=== PATIENT | female | born 1990 | race Caucasian/White ===

== ENCOUNTER 2018-05-15 10:45 | Outpatient (REF) | payer SELFPAY ==
[2018-05-15 12:51] LABS: HCT 43.5 % (36.0-46.0); Mean Corp. HGB Concentration 32.2 g/dL (32.0-36.0); Mean Corpuscular Hemoglobin 27.1 pg (27.0-33.0); Mean Corpuscular Volume 84.1 fL (80-95); Mean Platelet Volume 10.2 fL (8.0-11.0); Platelet Count 333 x1000/uL (130-400); RBC 5.17 m/cumm (4.00-5.20); RBC Distribution Width 13.2 % (11.7-14.6); White Blood Cell Count 11.44 k/cumm (4.4-10.8)
[2018-05-15 13:15] LABS: Hemoglobin A1C 5.9 % (4.5-6.2)
[2018-05-15 13:23] LABS: Glucose 96 mg/dL (70-100); TSH (W/Ref FT4) 1.77 uIU/mL (0.358-3.74)
[2018-05-18 10:46] LABS: DHEA Sulfate 228 ug/dl (96-512)
[2018-05-18 11:17] LABS: HIV-1/2 Ag & Ab Screen Negative (NEGAT)
[2018-05-18 11:21] LABS: LH 3.8 mIU/ml
[2018-05-18 11:24] LABS: FSH 3.9 mIU/ml; Prolactin 7.9 ng/ml
[2018-05-18 12:47] LABS: Syphilis Serology (RPR) Negative (Negative)
[2018-05-19 01:31] LABS: Testosterone, Total 14 ng/dL (8-60)
== END 2018-05-15 11:05 ==
LOC: NCHCN 10:45
PROVIDERS: Visit Provider Family Medicine
DX: N97.9 Female infertility, unspecified (principal); Z00.00 Encounter for general adult medical examination without abnormal findings; Z11.4 Encounter for screening for human immunodeficiency virus [HIV]; Z13.1 Encounter for screening for diabetes mellitus; Z13.29 Encounter for screening for other suspected endocrine disorder
CPT/HCPCS: 82627; 82947; 84403; 85027; 87389; 83001; 83002; 83036; 84146; 84443; 86592

== ENCOUNTER 2018-10-28 09:34 | Outpatient (REF) | payer SELFPAY ==
--- NOTE | 2018-10-28 09:00 | PAPFT_PTH ---
PATIENT: Bernadine Ridley LOC: [facility] U#:[id number] AGE/SX: 27/F ROOM: RE10/28/[address]: Lisa Castellano : 1990 BED: DIS: 10/28/2018 SPEC #: [id number] RECD: 10/28/18 12:50 STATUS: YARIEL REAbhilash #: [id number] HOLLY: 10/28/18 09:[address]: Lisa Castellano DEPT: [facility] Cytology RECD BY: Katarzyna Dukes Tissues: 1 - CX/ENDOCX FOR PAP SMEARS Procedures: PAP THIN PREP/[facility]VM Screening Comments: [id number] (CHLAMYDIA/GC)
[2018-10-29 14:42] LABS: Chlamydia Result Negative; GC Result Negative; Specimen Description SEE COMMENTS
== END 2018-10-28 09:54 ==
LOC: NCHCN 09:34
PROVIDERS: PCP Family Medicine; Visit Provider Family Medicine
DX: Z12.4 Encounter for screening for malignant neoplasm of cervix (principal); Z11.51 Encounter for screening for human papillomavirus (HPV); Z00.00 Encounter for general adult medical examination without abnormal findings; Z11.3 Encounter for screening for infections with a predominantly sexual mode of transmission
CPT/HCPCS: 87491; 87591; 88142

== ENCOUNTER 2019-09-17 12:52 | Outpatient (REF) | payer BC, SELFPAY ==
[2019-09-17 16:47] LABS: HCT 43.4 % (36.0-46.0); HGB 14.7 g/dL (12.0-15.5); Mean Corp. HGB Concentration 33.9 g/dL (32.0-36.0); Mean Corpuscular Volume 85.6 fL (80-95); Mean Platelet Volume 10.7 fL (8.0-11.0); Platelet Count 303 x1000/uL (130-400); RBC 5.07 m/cumm (4.00-5.20); RBC Distribution Width 12.8 % (11.7-14.6); White Blood Cell Count 10.49 k/cumm (4.4-10.8)
[2019-09-17 17:00] LABS: Hemoglobin A1C 5.7 % (3.8-5.6)
[2019-09-17 17:05] LABS: ALT 17 U/L (14-59); AST 13 U/L (15-37); Albumin 3.9 g/dL (3.4-5.0); Alkaline Phosphatase 67 U/L (46-116); Amylase 46 U/L (25-115); BUN 15 mg/dL (7-18); Bilirubin, Total 0.3 mg/dL (0.2-1.0); CREATININE 0.97 mg/dL (0.55-1.02); Calcium 8.9 mg/dL (8.5-10.1); Chloride 103 mmol/L (98-107); Glucose 93 mg/dL (74-106); Lipase 91 U/L (73-393); Potassium 4.8 mmol/L (3.5-5.1); Sodium 139 mmol/L (136-145); TSH (W/Ref FT4) 1.55 uIU/mL (0.36-3.74); Total Protein 7.3 g/dL (6.4-8.2)
== END 2019-09-17 13:12 ==
LOC: NCHCN 12:52
PROVIDERS: PCP Family Medicine; Visit Provider Family Medicine
DX: R73.03 Prediabetes (principal); R10.13 Epigastric pain
CPT/HCPCS: 80053; 83690; 85027; 82150; 83036; 84443

== ENCOUNTER 2019-09-20 08:27 | Outpatient (CLI) | payer BC, SELFPAY ==
--- NOTE | 2019-09-20 | DI.US_ITS ---
EXAM: US ABDOMEN INDICATION: EPIGASTRIC ABD PAIN, R10.13 COMPARISON: No exams were available for comparison TECHNIQUE: Ultrasound abdomen performed using standard protocol FINDINGS: LIVER: Normal GALLBLADDER: No evidence of cholelithiasis. No pericholecystic fluid identified. No evidence of wall thickening. KIDNEYS: Kidneys are symmetric in size. No evidence of renal calculi. No evidence of hydronephrosis. No renal mass or cyst identified. BILIARY SYSTEM: Common bile duct measures 3 mm. No intrahepatic biliary ductal dilation. MONTOYA'S SIGN: Negative. PANCREAS: Normal where visualized. SPLEEN: Not enlarged. ABDOMINAL AORTA AND IVC: Visualized portions normal caliber. ASCITES: None seen. IMPRESSION: Normal sonographic appearance of the upper abdomen.
== END 2019-09-20 08:47 ==
PROVIDERS: PCP Family Medicine; Visit Provider Family Medicine
DX: R10.13 Epigastric pain (principal)
CPT/HCPCS: 76700

== ENCOUNTER 2019-11-05 12:48 | Emergency (ER) | payer BC, SELFPAY ==
[2019-11-05 12:54] VITALS: BP 160/76; PULSE 97; RESP 18; TEMP 36.1; O2SAT 99
--- NOTE | 2019-11-05 13:15 | DI.US_ITS ---
EXAM: US ABDOMEN LIMITED CLINICAL HISTORY: Eval gallbladder, RUQ abd pain TECHNIQUE: Ultrasound abdomen performed using standard protocol. COMPARISON: No exams were available for comparison FINDINGS: LIVER: Normal size and echogenicity. No focal liver lesions are seen.. GALLBLADDER: Mildly contracted. No evidence of cholelithiasis. No evidence of wall thickening. No pe richolecystic fluid identified. MONTOYA'S SIGN: Negative. BILIARY SYSTEM: No intrahepatic or extrahepatic biliary ductal dilation. Right kidney: Normal in size. No evidence of renal calculi. No evidence of hydronephrosis. No renal mass or cyst identified. PANCREAS: Normal where visualized. ASCITES: None seen. IMPRESSION: Normal sonographic appearance of the upper abdomen. DATA REPOSITORY:
--- NOTE | 2019-11-05 13:24 | W.ED.GENAD ---
Discharge Plan Disposition Patient Disposition: HOME Condition: Stable Discharge Details Chief Complaint: Abd Prob Clinical Impression: , Gallbladder colic Primary Care Provider: Lisa Castellano ED Provider: Jo Ann Sanon Home Meds and New Rx's Prescriptions: New ondansetron 4 mg tablet,disintegrating 4 mg PO TID PRN (Reason: nausea and vomiting) 5 Days Qty: 15 RF: 0 No Action polyethylene glycol 3350 [Miralax] 17 gram Powder In Packet RF: 0 Discharge Instructions Instructions: (ED), Abdominal Pain (ED) Additional Instructions: Follow-up with women's wellness within the next 4 weeks. Return to the ED for any vaginal bleeding worsening abdominal pain, fever, vomiting not relieved by medications or any concerns. Take medications as prescribed. You may take Tylenol as needed for pain is generally safe for . Follow up with primary care provider in 3-5 days. Return to ED sooner if any worsening or concerns. Increase oral fluids. Referrals: Mulu Garcia DO [OSTEOPATHIC DOCTOR] - Lisa Castellano MD [Primary Care Provider] - Discharge Data Discharge Date/Time-TO BE ENTERED AT DEPARTURE: 11/05/19 15:19 Medical Decision Making 28-year-old female presents the ER with right upper quadrant abdominal pain which radiates into her back which began yesterday associated with nausea for the last week. Patient denies any vaginal discharge or bleeding. Denies any history of abdominal surgeries. She rates pain moderate to severe on a scale sharp constant and waxing and waning. On initial presentation urine POC test came back positive. Denies any hematochezia or hematemesis ,no vomiting. Positive constipation no diarrhea. 1440: Discussed preliminary results of ultrasound with cad technician he reports no gallstones, no common bile duct stone, no thickened gallbladder wall. No evidence of cholecystitis. Labs are largely within normal limits, WBC is 11.15, absolute neutrophils 8.38, anion gap is 11.2, glucose 140, beta-hCG is 5,184 EXAM: US ABDOMEN LIMITED CLINICAL HISTORY: Eval gallbladder, RUQ abd pain TECHNIQUE: Ultrasound abdomen performed using standard protocol. COMPARISON: No exams were available for comparison FINDINGS: LIVER: Normal size and echogenicity. No focal liver lesions are seen.. GALLBLADDER: Mildly contracted. No evidence of cholelithiasis. No evidence of wall thickening. No pericholecystic fluid identified. RANGEL'S SIGN: Negative. BILIARY SYSTEM: No intrahepatic or extrahepatic biliary ductal dilation. Right kidney: Normal in size. No evidence of renal calculi. No evidence of hydronephrosis. No renal mass or cyst identified. PANCREAS: Normal where visualized. ASCITES: None seen. IMPRESSION: Normal sonographic appearance of the upper abdomen. EXAM: US OB TRANSVAGINAL CLINICAL HISTORY: POSITIVE , ABD PAIN. COMPARISON: No exams were available for comparison TECHNIQUE: Transabdominal Transvaginal first trimester obstetrical ultrasound performed. FINDINGS: Sonographic images demonstrate a small gestational sac within a thickened endometrium. No pole is visible at this time. A yolk sac is seen. Sonographically assessed gestational age based on mean sac diameter is 5 weeks 5 days. Estimated date of delivery based on this ultrasound is: 02 July 2020 Estimated date of delivery based upon LMP: 09 July 2020 No free fluid identified. Both ovaries appear sonographically normal. Pelvic Measurments Uterus: 9.1 x 5.0 x 6.6 cm Rt Ovary: 3.1 x 2.6 x 2.0 cm Lt Ovary: 3.1 x 1.5 x 1.8 cm, corpus luteum cyst. IMPRESSION: Gestational sac measuring 5 weeks 5 days. No pole is visible at this time. Pelvic and transvaginal ultrasound noted a intrauterine gestational sac measuring approximately 5 weeks ?5 days. This correlates with her hCG quant levels. No pole seen at this time no heart beat detected at this time this may be too early of an intrauterine . Will have patient follow-up with women's wellness in the next month. Discussed positive test with patient, verbalized understanding. We will send patient home with Zofran ODT 3 times a day as needed nausea vomiting. Discussed probable cholestasis due to , verbalized understanding. Will refer patient to women's wellness. HPI General Mode of arrival: ambulatory. Date/Time Provider Initiated Documentation: 11/05/19 13:17. Limitations to Documentation: no limitations. Information obtained by: patient. HPI Narrative: 28-year-old female presents the ER with right upper quadrant abdominal pain which radiates into her back which began yesterday associated with nausea for the last week. Patient denies any vaginal discharge or bleeding. Denies any history of abdominal surgeries. She rates pain moderate to severe on a scale sharp constant and waxing and waning. On initial presentation urine POC test came back positive. Denies any hematochezia or hematemesis ,no vomiting. Positive constipation no diarrhea. Related Data Home Medications Medication Instructions Recorded Confirmed ondansetron 4 mg PO TID PRN 5 Days #15 tab 11/05/19 polyethylene glycol 3350 [Miralax] 11/05/19 Previous Rx's Medication Instructions Recorded ondansetron 4 mg PO TID PRN 5 Days #15 tab 11/05/19 Allergies Allergy/AdvReac Type Severity Reaction Status Date / Time No Known Allergies Allergy Unverified 11/05/19 12:57 General Stated Complaint: Abd Prob MILA: 3 Review of Systems Narrative: Constitutional: Negative for weight loss, alert and oriented, well groomed, normal body habitus, appears comfortable. HEENT: Denies trauma, headaches, blurry vision, nasal discharge, sore throat, trouble swallowing. Chest: Denies chest pain, palpitations, irregular rhythm, hypertension. Respiratory: Denies Shortness of breath, cough, hemoptysis. GI: Denies vomiting, diarrhea,. Positive right upper quadrant abdominal pain, nausea, constipation. : Denies dysuria, hematuria, flank pain, vaginal bleeding or discharge, rectal bleeding. Neuro: Denies dizziness, blurry vision, weakness, syncope, headache or facial numbness. Hematologic: Denies easy bruising, intolerance to heat or cold, hair loss. [facility] Social History Smoking/Tobacco Use Status: Current every day Alcohol Intake: current Drug use: Occasionally Substance use type: marijuana Do you feel safe at home: Yes Do you feel safe in your relationship?: Yes Exam Narrative Exam Narrative: Constitutional: Alert and oriented x3. Appears stated age. Normal body habitus. Head: Normocephalic, no trauma. Eyes: Pupils PERRLA, Red reflex noted, EOM's intact. Eyelids symmetrical without lesions, discharge, or swelling. ENT: Bilateral TM's WNL, External ear normal to inspection, no mastoid TTP, swelling, or erythema, Nasal turbinates WNL, no nasal discharge. Normal dentition, Posterior pharynx WNL, no exudate. Chest: RRR, Normal S1, S2, distal pulses intact. Resp: Lungs clear to auscultation bilaterally, no wheezes, rales, or rhonchi. Abdomen: Soft, tender to palpation midepigastric and right upper quadrant, positive Rangel sign. No lower abdominal tenderness to palpation. Normoactive bowel sounds all 4 quadrants. Musculoskeletal: Normal gait, 5/5 strength to all four extremities. Skin: No suspicious rashes or lesions. Capillary refill less than 2 sec. Neurologic: Cranial nerves II-XII intact. Alert and oriented x 3. DTR's intact. Hematologic/Lymphatic: No ecchymosis, no lymphadenopathy. Course Vital Signs Vital signs: Vital Signs Temperature 36.1 C L 11/05/19 12:54 Pulse 97 H 11/05/19 12:54 Respiratory Rate 18 11/05/19 12:54 Blood Pressure 160/76 H 11/05/19 12:54 Pulse Oximetry 99 11/05/19 12:54 Temperature 36.1 C L 11/05/19 12:54 Pulse 97 H 11/05/19 12:54 Respiratory Rate 18 11/05/19 12:54 Respiratory Effort Non-Labored 11/05/19 12:57 Blood Pressure 160/76 H 11/05/19 12:54 Blood Pressure Position Sitting 11/05/19 12:54 Pulse Oximetry 99 11/05/19 12:54 Oxygen Delivery Method Room Air 11/05/19 12:54 Oxygen Flow Rate 0 11/05/19 12:54 Pain Level 6 11/05/19 12:54 Lab/Test Results Lab/Test Results: POC- Test(urine) Positive
[2019-11-05 13:52] LABS: Abs Immature Grans 0.06 10^3/uL (0.0-0.06); Absolute Basophil Count 0.02 10^3/uL (0.0-0.2); Absolute Eosinophil Count 0.09 10^3/uL (0.0-0.7); Absolute Neutrophil Count 8.38 10^3/uL (1.2-6.7); Basophils % 0.2; Eosinophils % 0.8; HCT 43.1 % (36.0-46.0); HGB 14.4 g/dL (11.2-15.7); Immature Grans % 0.5; MCH 28.7 pg (27.0-33.0); MCHC 33.4 % (32.0-36.0); MCV 85.9 fL (80-95); MPV 9.9 fL (8.0-11.0); Monocytes % 6.3; Neutrophils % 75.2; Platelet Count 291 10^3/uL (130-400); RBC 5.02 10^6/uL (3.93-5.22); RDW 12.3 % (11.7-14.6); RDW-SD 38.2 fL; WBC 11.15 10^3/uL (4.4-10.8)
[2019-11-05 13:53] LABS: Bilirubin Negative (Negative); Blood Negative (Negative); Clarity Sl Cloudy (Clear); Glucose Negative (Negative); Ketones Negative (Negative); Leukocyte Esterase Negative (Negative); Nitrite Negative (Negative); Specific Gravity >= 1.030 (1.005-1.025); Urobilinogen 0.2 EU/dL (Up TO 0.2)
[2019-11-05 14:10] LABS: ALT 18 U/L (14-59); AST 11 U/L (15-37); Albumin 3.8 g/dL (3.4-5.0); Alkaline Phosphatase 61 U/L (46-116); Anion Gap 11.2 mmol/L (3-11); BUN 11 mg/dL (7-18); Bilirubin, Total 0.3 mg/dL (0.2-1.0); CO2 24.8 mmol/L (21.0-32.0); CREATININE 0.82 mg/dL (0.55-1.02); Calcium 8.9 mg/dL (8.5-10.1); Chloride 102 mmol/L (98-107); Glucose 140 mg/dL (74-106); Lipase 103 U/L (73-393); Potassium 3.5 mmol/L (3.5-5.1); Sodium 138 mmol/L (136-145); Total Protein 7.6 g/dL (6.4-8.2)
[2019-11-05 14:33] LABS: HCG Quant, Pregnancy 5984 mIU/mL (1-3)
[2019-11-05] MEDS: Normal Saline 1,000 ML 1000 ML IV (14:39)
[2019-11-05] MEDS: Normal Saline Flush 10 ML SYR IVP (14:40)
[2019-11-05] MEDS: Ondansetron 4 MG/2 ML VIAL IVP (14:40)
== END 2019-11-05 15:19 | disposition home or self-care (01) ==
PROVIDERS: Emergency Provider Registered Nurse Emergency; PCP Family Medicine
DX: R11.2 Nausea with vomiting, unspecified (principal); K80.50 Calculus of bile duct without cholangitis or cholecystitis without obstruction; R10.11 Right upper quadrant pain; Z33.1 Pregnant state, incidental; Z3A.01 Less than 8 weeks gestation of pregnancy; O99.331 Smoking (tobacco) complicating pregnancy, first trimester; F17.210 Nicotine dependence, cigarettes, uncomplicated
CPT/HCPCS: 36415; 80053; 81025; 83690; 96361; 96374; 99284; 76705; 76817; 81003; 84702; 85025; J2405

== ENCOUNTER 2020-04-17 02:39 | Outpatient (CLI) | payer BC, SELFPAY ==
[2020-04-17 11:51] LABS: Glucose 1 Hour 153 mg/dL
[2020-04-17 13:54] LABS: Glucose 3 Hour 121 mg/dL
== END 2020-04-17 02:59 ==
PROVIDERS: PCP Family Medicine; Visit Provider Nurse Practitioner Women's Health
DX: R73.02 Impaired glucose tolerance (oral) (principal)
CPT/HCPCS: 36415; 82951

== ENCOUNTER 2020-09-23 10:00 | Observation (INO) | payer BC, SELFPAY ==
[2020-09-23] VITALS (29 sets, daily range): BP systolic 128–172; BP diastolic 73–94; PULSE 64–81; RESP 12–20; TEMP 36.4–37.1; O2SAT 96–100
--- NOTE | 2020-09-23 10:15 | RT.EKG_ITS ---
APPROVED REPORT Exam: Resting ECG Reason for Exam: R chest pain Patient Location: E HR:68 bpm ECG Measurements Heart Rate 68 AXIS NJ 215 P 30 QRSd 89 QRS 22 QT 397 T 28 QTc 422 Conclusion Sinus rhythm...normal P axis, V-rate 60- 99 NJ >210
--- NOTE | 2020-09-23 10:27 | W.ED.GENAD ---
Discharge Plan Disposition [facility] Condition: Stable Discharge Details Clinical Impression: Pulmonary embolism Admit Date/Time: 09/23/20 13:17 Admit Provider: Estella Solomon Attending Provider: Estella Solomon Primary Care Provider: Lisa Castellano ED Provider: Andi Lopez Medical Decision Making This is a 29-year-old female states she was sitting at her desk yesterday when she felt the abrupt onset of right lower posterior chest pain. She is worse with inspiration, it has worsened over the past day and now constant, worse with deep inspiration. She does not feel shortness of breath. She is not had any leg pain or swelling. She is on oral contraceptive. Patient arrives to the ER with blood pressure 132/88, pulse is 80, she is afebrile and oxygenating 100% on room air. Her exam is essentially reassuring with only discrete right posterior chest tenderness to percussion. Differential diagnosis includes renal colic, biliary colic, pyelonephritis, pneumonitis or PE. Patient IV access established, screening labs and EKG obtained. Labs most notable for slight elevation of white blood cell count at 11, [place] D[place]dimer [place] 5088. Normal chemistries and negative troponin. Patient referred for CT scan of the chest which reveals acute bilateral pulmonary emboli, with no involvement of the main pulmonary arteries, and no evidence of right heart strain. Low extremity bilateral venous ultrasound obtained without evidence of DVT. Given the patient's new onset bilateral PE, some mild ongoing discomfort, I do feel she will benefit from admission. Case discussed with Dr. Solomon, anticoagulation initiated with Lovenox, and patient to be admitted. HPI General Mode of arrival: ambulatory. Date/Time Provider Initiated Documentation: 09/23/20 10:00. Limitations to Documentation: no limitations. Information obtained by: patient. History of Present Illness 29 year old F presents to the emergency department with the chief complaint of Right mid back pain, described as moderate, Quality is described as dull and constant, and is localized to the chest and right. Patient neck. Patient started experiencing this hour(s) and it has been constant. Rest improves symptom(s), Other factors that worsen symptoms (Worse with deep breath) . Patient notes denies cough, fever/chills and shortness of breath. Patient did receive the following treatments prior to arrival, other (Tylenol) Related Data Home Medications Medication Instructions Recorded Confirmed pantoprazole 40 mg PO DAILY 09/23/20 09/23/20 Allergies Allergy/AdvReac Type Severity Reaction Status Date / Time No Known Allergies Allergy Unverified 09/23/20 10:09 General Stated Complaint: Nk/Back Pain MILA: 3 Review of Systems Narrative: No change to urination. No fever. Has had a history of biliary colic but it feels different. No leg pain or swelling. No prolonged immobilization or travel. Takes oral contraceptive pill. 8 systems reviewed and otherwise negative. [facility] Social History Smoking/Tobacco Use Status: Current every day Tobacco Type: cigarettes Smoking risk assessment performed?: Yes Alcohol Intake: current Alcohol Intake frequency: a few times a month Drug use: Occasionally Substance use type: marijuana Do you feel safe at home: Yes Do you feel safe in your relationship?: Yes Exam Narrative Exam Narrative: GEN: awake, alert, oriented 3. Pleasant, well groomed, interactive. HEAD: Normocephalic, atraumatic ENT: Mucous membranes moist, oropharynx unremarkable, External ear exam unremarkable EYES: PERRL, EOMI NECK: Full ROM, no YOVANNY, no menigismus CHEST/RESP: Slight tenderness to percussion right posterior chest, clear to auscultation bilateral, no wheeze/rhonchi/rales CARDIOVASCULAR: RRR, no murmur, rub noemi. 2+ Rad pulse bilateral ABDOMEN: Soft, nontender, no mass. +Bowel sounds EXT: Full ROM, no edema, no rash Neuro: Grossly normal neurologic exam, conversant, interactive. Psych: Speech fluent, thoughts congruent, affect normal Course Vital Signs Vital signs: Vital Signs Temperature 36.4 C L 09/23/20 10:05 Pulse 70 09/23/20 10:05 Respiratory Rate 18 09/23/20 10:05 Blood Pressure 172/88 H 09/23/20 10:05 Pulse Oximetry 100 09/23/20 10:05 Temperature 36.4 C L 09/23/20 10:05 Temperature Source Temporal Artery Scan 09/23/20 10:05 Pulse 70 09/23/20 10:05 Respiratory Rate 18 09/23/20 10:05 Respiratory Effort Non-Labored 09/23/20 10:11 Blood Pressure 172/88 H 09/23/20 10:05 Blood Pressure Position Sitting 09/23/20 10:05 Pulse Oximetry 100 09/23/20 10:05 Oxygen Delivery Method Room Air 09/23/20 10:05 Oxygen Flow Rate 0 09/23/20 10:05 Pain Level 9 09/23/20 10:05
[2020-09-23] MEDS: Normal Saline 1,000 ML 1000 ML IV (10:45)
[2020-09-23] MEDS: Ketorolac 15 MG/ML VIAL IVP (10:47)
[2020-09-23 10:49] LABS: Abs Immature Grans 0.05 10^3/uL (0.0-0.06); Absolute Basophil Count 0.04 10^3/uL (0.0-0.2); Absolute Eosinophil Count 0.34 10^3/uL (0.0-0.7); Absolute Monocyte Count 0.74 10^3/uL (0.1-0.8); Basophils % 0.3; Eosinophils % 2.9; HGB 13.7 g/dL (11.2-15.7); Immature Grans % 0.4; Lymphocytes % 13.7; MCH 27.3 pg (27.0-33.0); MCHC 31.9 % (32.0-36.0); MCV 85.7 fL (80-95); MPV 9.8 fL (8.0-11.0); Monocytes % 6.3; Neutrophils % 76.4; Nucleated RBC 0 %; Platelet Count 238 10^3/uL (130-400); RBC 5.02 10^6/uL (3.93-5.22); RDW 12.4 % (11.7-14.6); RDW-SD 38.8 fL; WBC 11.71 10^3/uL (4.4-10.8)
[2020-09-23 10:50] LABS: Absolute Neutrophil Count 8.95 10^3/uL (1.2-6.7)
[2020-09-23 11:02] LABS: ALT 24 U/L (14-59); AST 11 U/L (15-37); Albumin 3.7 g/dL (3.4-5.0); Alkaline Phosphatase 62 U/L (46-116); Anion Gap 10.3 mmol/L (3-11); BUN 12 mg/dL (7-18); Bilirubin, Total 0.4 mg/dL (0.2-1.0); CO2 26.7 mmol/L (21.0-32.0); CREATININE 0.9 mg/dL (0.55-1.02); Calcium 9.3 mg/dL (8.5-10.1); Chloride 104 mmol/L (98-107); Glucose 104 mg/dL (74-106); Magnesium 1.8 mg/dL (1.8-2.4); Potassium 4.2 mmol/L (3.5-5.1); Sodium 141 mmol/L (136-145); Total Protein 8.1 g/dL (6.4-8.2)
[2020-09-23 11:03] LABS: Troponin I < 0.05 ng/mL (<0.06)
[2020-09-23 11:09] LABS: Bilirubin Negative (Negative); Blood Negative (Negative); Clarity Clear (Clear); Glucose Negative (Negative); Ketones Negative (Negative); Leukocyte Esterase Negative (Negative); Nitrite Negative (Negative); Urobilinogen 0.2 EU/dL (Up TO 0.2)
--- NOTE | 2020-09-23 11:15 | DI.CT_ITS ---
Exam(s) CT CHEST PE CTA EXAM: CT CHEST PE CTA CLINICAL HISTORY: R posterior chest pain, elev ddimer. TECHNIQUE: Imaging Protocol: CT angiography of the chest was performed using pulmonary embolus marta col. Multi planar reconstructions were performed. CONTRAST MATERIAL: Intravenous: Omnipaque 350 Contrast volume: 88 cc COMPARISON: No exams were available for comparison FINDINGS: CHEST: PULMONARY ARTERIES: There are multiple bilateral intra arterial filling defects consistent with acute pulmonary emboli bilaterally. These are evident in both lower lobes. There are no emboli in the ma in pulmonary arteries. LUNGS: . There is mild infiltrate in the posterior basal segments of both lower lobes. No pleural e ffusions. No findings in the trachea and mainstem bronchi.. MEDIASTINUM: There is no hilar nor mediastinal adenopathy. CARDIAC: Heart size is upper normal. There is no pericardial effusion.Caliber of the thoracic aorta is within normal limits. There is no significant shift of the interventricular septum. PARTIALLY VISUALIZED UPPERMOST ABDOMEN: Hepatic steatosis. OSSEOUS: No significant osseous lesions.. IMPRESSION: 1. This study is positive for acute bilateral pulmonary emboli, mostly in both lower lobes..No obviou s pulmonary infarction although there is mild infiltrate in the posterior basal segments of both lowe r lobes. There are no pleural effusions. 2. Heart size upper normal. There is no pericardial effusion. No obvious right heart strain. RADIATION DOSE DELIVERED: 494.36mGy.cm Total DLP DATA REPOSITORY: All CT scans at this facility are submitted to the National Radiology Data Registry (NRDR) Dose Index Registry (DIR) with the [employer] (A[employer]). RADIATION OPTIMIZATION: All CT scans at this facility use at least one of these dose optimization te chniques: automated exposure control; mA and/or kV adjustment per patient size (includes targeted exa ms where dose is matched to clinical indication); or iterative reconstruction.
[2020-09-23 11:20] LABS: D-Dimer 5080 ng/mlFEU (<500)
--- NOTE | 2020-09-23 11:45 | DI.US_ITS ---
Exam(s) US EXTREMITY VENOUS BI EXAM: US EXTREMITY VENOUS BI CLINICAL HISTORY: R poserior chest pain, probable PE TECHNIQUE: Grayscale, color, and doppler imaging of the deep venous system of both lower extremities was performed. COMPARISON: None FINDINGS: There is no evidence of intraluminal thrombus and there is normal compression and augmentation demons trated within the common femoral veins, femoral veins, and popliteal veins of both lower extremities. In the calves the interrogated veins also exhibit normal compression/ augmentation properties. The greater saphenous veins also appear patent as do the saphenofemoral junctions bilaterally.. IMPRESSION: 1. No ultrasound evidence of DVT in either lower extremity. DATA REPOSITORY:
[2020-09-23] MEDS: Omnipaque 350 MG/ML 100 ML BTL IV (11:53)
--- NOTE | 2020-09-23 12:26 | DI.VRAD_ITS ---
Addendum created by Tigre Granger MD on 09/23/2020 12:33:18 PM EDT: THIS REPORT CONTAINS FINDINGS THAT MAY BE CRITICAL TO PATIENT CARE. The findings were verbally communicated via telephone conference with HELDER GARCIA at 12:33 PM EDT on 09/23/2020. The findings were acknowledged and understood. Initial report created on 09/23/2020 12:26:09 PM EDT: PROCEDURE INFORMATION: Exam: CTA Chest With Contrast Exam date and time: 09/23/2020 11:22 AM Age: 29 years old Clinical indication: Other: R posterior cp, elev d-dimer TECHNIQUE: Imaging protocol: Computed tomographic angiography of the chest with contrast. 3D rendering (Not supervised by radiologist): MIP and/or 3D reconstructed images were created by the technologist. Radiation optimization: All CT scans at this facility use at least one of these dose optimization techniques: automated exposure control; mA and/or kV adjustment per patient size (includes targeted exams where dose is matched to clinical indication); or iterative reconstruction. Contrast material: OMINPAQUE 350; Contrast volume: 88 ml; Contrast route: INTRAVENOUS (IV); COMPARISON: SD US ABDOMEN LIMITED 11/05/2019 1:42 PM FINDINGS: Limitations: None. Pulmonary arteries: Acute pulmonary intra arterial filling defects are seen bilaterally such as in left lobar branch, left lower lobe segmental arteries, in the branch to inferior lingula and in distal most right into lobar artery and in multiple right lower lobe segmental and more distal branches. The vessels are not enlarged. Aorta: Normal. Great vessels off aortic arch: Unremarkable. Trachea: Normal. Bronchial tree: Normal caliber. No endobronchial masses or stenoses. Lungs: Atelectasis versus small infarct in the inferior posterior right lower lobe. Pleural spaces: Normal. Heart: The RV/LV ratio is approximately 0.8. Coronary arteries: Normal. Lymph nodes: No enlarged or otherwise suspicious axillary, mediastinal or hilar adenopathy. Bones/joints: No acute fracture or suspicious lesion. Soft tissues: Normal. IMPRESSION: Acute bilateral pulmonary arterial emboli with questionable very small posterior right lower lobe infarct. Negative for evidence of right heart strain nor is there pericardial effusion or pulmonary edema. Dictated and Authenticated by: Tigre Granger MD. Ordering:JOEY Escamilla MD
--- NOTE | 2020-09-23 13:23 | DI.VRAD_ITS ---
PROCEDURE INFORMATION: Exam: US Duplex Lower Extremity Veins, Bilateral Exam date and time: 09/23/2020 11:55 AM Age: 29 years old Clinical indication: Other: RT posterior chest pain, probable pe TECHNIQUE: Imaging protocol: Real-time duplex ultrasound of the extremities with 2-D carter scale, color Doppler flow and spectral waveform analysis with image documentation. Complete exam focused on the bilateral lower extremity veins. COMPARISON: US OB TRANSVAGINAL 11/05/2019 2:02 PM FINDINGS: Right deep veins: Unremarkable. The common femoral, femoral, proximal profunda femoral and popliteal veins are patent without thrombus. Normal Doppler waveforms. Normal compressibility and/or augmentation response. Right superficial veins: Saphenofemoral junction is patent without thrombus. Left deep veins: Unremarkable. The common femoral, femoral, proximal profunda femoral and popliteal veins are patent without thrombus. Normal Doppler waveforms. Normal compressibility and/or augmentation response. Left superficial veins: Saphenofemoral junction is patent without thrombus. Soft tissues: Unremarkable. IMPRESSION: No evidence of deep vein thrombosis. Dictated and Authenticated by: Tigre Granger MD. Ordering:JOEY Escamilla MD
[2020-09-23] MEDS: Enoxaparin 120 MG/0.8 ML SYR SC (13:29)
[2020-09-23] MEDS: Normal Saline 1,000 ML 150 ML IV ×2 (13:44→20:15)
[2020-09-23 14:11] LABS: Troponin I < 0.05 ng/mL (<0.06)
--- NOTE | 2020-09-23 15:11 | HPE_ITS ---
Date of service: 09/23/20 Time of Service: 15:12 Assessment and Plan Assessment and plan (1) Pulmonary embolism: Start date: 09/23/20 Start time: 15:21 Status: Acute Assessment and plan: On oral contraceptives and smoker. 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 Found to have elevated d-dimer of 5080 CT with: Acute bilateral pulmonary arterial emboli with questionable very small posterior right lower lobe infarct. Negative for evidence of right heart strain nor is there pericardial effusion or pulmonary edema. Started on enoxaparin subcu 1mg/kg and will transition to PO apixaban Qualifiers: Acute cor pulmonale presence: without acute cor pulmonale Chronicity: acute Pulmonary embolism type: other Qualified Code(s): I26.99 - Other p ulmonary embolism without acute cor pulmonale (2) Tobacco abuse: Start date: 09/23/20 Start time: 15:27 Status: Acute Assessment and plan: nicotine patch prn (3) Discharge planning issues: Start date: 09/23/20 Start time: 15:27 Status: Acute Assessment and plan: Home when medically ready, no services will need f/u with heme/oc discussed with Dr. Solomon History of Present Illness History of Present Illness Chief Complaint: PE Narrative: 29 y.o female with no significant PMH presents to [facility] after having ongoing pain to right posterior chest since at work yesterday. Work up in the ED revealing WBC of 11.7, DDimer 5080, CT with acute bilateral pulmonary arterial emboli with questionable very small posterior right lower lobe infarct, no right heart strain, no requiring oxygen. US negative for bilateral DVT. She is currently on oral contraceptives, and a tobacco user. She has been asked to be admitted to m/s for further management. She will be admitted to / telemetry. Initiated on enoxaparin and transitioned to apixaban. Tramadol for pain. Review of Systems All systems reviewed & are unremarkable except as noted in HPI and below PFSH Social History Smoking/Tobacco Use Status: Current every day Tobacco Type: cigarettes Smoking risk assessment performed?: Yes Alcohol Intake: current Alcohol Intake frequency: a few times a month Drug use: Occasionally Substance use type: marijuana Do you feel safe at home: Yes Do you feel safe in your relationship?: Yes Meds Allergies and Home Medications Allergies Allergy/AdvReac Type Severity Reaction Status Date / Time No Known Allergies Allergy Unverified 09/23/20 10:09 Home Medications Medication Instructions Recorded Confirmed Type pantoprazole 40 mg PO DAILY 09/23/20 09/23/20 History Exam Const General: cooperative, healthy appearing, comfortable and no acute distress Nutritional Appearance: overweight Orientation: alert, awake and oriented x3 Eyes General: appearance normal, both eyes and all related structures EOM: EOM intact bilaterally Neck Neck: normal visual inspection Lymphatic: no lymphadenopathy noted Resp Effort & Inspection: normal respiratory effort and able to speak in complete sentences Auscultation: clear to auscultation bilaterally Cardio Jugular venous pressure: no JVD Rate: regular rate Rhythm: regular rhythm Heart Sounds: S1 normal and S2 normal GI Inspection: normal to inspection Palpation: soft Auscultation: normal bowel sounds Skin General skin exam: no rashes or lesions noted Neuro General: patient alert, patient awake and patient oriented x3 Extrem General: no clubbing, cyanosis or edema Results Labs Result diagrams: 09/23/20 10:40 09/23/20 10:40 Labs: Laboratory Results - last 24 hr 09/23/20 09/23/20 09/23/20 10:40 10:40 10:40 WBC 11.71 H RBC 5.02 Hgb 13.7 Hct 43.0 MCV 85.7 MCH 27.3 MCHC 31.9 L RDW 12.4 Plt Count 238 MPV 9.8 Immature Gran % 0.4 Neutrophils % 76.4 Lymphocytes % 13.7 Monocytes % 6.3 Eosinophils % 2.9 Basophils % 0.3 Nucleated RBC % 0 Absolute Neutrophils 8.95 H Absolute Lymphocytes 1.60 Absolute Monocytes 0.74 Absolute Eosinophils 0.34 Absolute Basophils 0.04 D-Dimer 5080 H Sodium 141 Potassium 4.2 Chloride 104 Carbon Dioxide 26.7 Anion Gap 10.3 BUN 12 Creatinine 0.9 Estimated GFR/1.73 m2 >= 60.00 Glucose 104 Calcium 9.3 Magnesium 1.8 Total Bilirubin 0.4 AST 11 L ALT 24 Alkaline Phosphatase 62 Troponin I < 0.05 Total Protein 8.1 Albumin 3.7 Urine Color Urine Clarity Urine pH Ur Specific [place] Urine Protein Urine Ketones Urine Blood Urine Nitrite Urine Bilirubin Urine Urobilinogen Ur Leukocyte Esterase Urine Glucose 09/23/20 09/23/20 11:00 13:40 WBC RBC Hgb Hct MCV MCH MCHC RDW Plt Count MPV Immature Gran % Neutrophils % Lymphocytes % Monocytes % Eosinophils % Basophils % Nucleated RBC % Absolute Neutrophils Absolute Lymphocytes Absolute Monocytes Absolute Eosinophils Absolute Basophils D-Dimer Sodium Potassium Chloride Carbon Dioxide Anion Gap BUN Creatinine Estimated GFR/1.73 m2 Glucose Calcium Magnesium Total Bilirubin AST ALT Alkaline Phosphatase Troponin I < 0.05 Total Protein Albumin Urine Color Yellow Urine Clarity Clear Urine pH 6.0 Ur Specific [place] 1.020 Urine Protein Negative Urine Ketones Negative Urine Blood Negative Urine Nitrite Negative Urine Bilirubin Negative Urine Urobilinogen 0.2 Ur Leukocyte Esterase Negative Urine Glucose Negative Last Vital Signs Temp 36.4 C L 09/23/20 10:05 Pulse 68 09/23/20 14:31 Resp 16 09/23/20 14:50 BP 142/73 H 09/23/20 14:31 Pulse Ox 100 09/23/20 14:50
[2020-09-23 15:55] LABS: Source Nasal/Nares
[2020-09-23] MEDS: traMADol 50 MG TAB PO (17:20)
[2020-09-23 18:44] LABS: COVID-19 PCR Negative (Negative)
[2020-09-23] MEDS: Ondansetron 4 MG/2 ML VIAL IVP (19:59)
[2020-09-23] MEDS: Normal Saline Flush 10 ML SYR IVP (19:59)
[2020-09-23] MEDS: MORPHine 4 MG/ML SYR 3 MG IVP (20:00)
[2020-09-24] MEDS: MORPHine 4 MG/ML SYR 3 MG IVP
[2020-09-24] MEDS: Enoxaparin 80 MG/0.8 ML SYR SC (02:43)
[2020-09-24] MEDS: Normal Saline 1,000 ML 150 ML IV (02:43)
[2020-09-24] MEDS: Enoxaparin 30 MG/0.3 ML SYR SC (02:43)
[2020-09-24 02:50] VITALS: BP 129/83; PULSE 64; RESP 15; TEMP 36.3; O2SAT 95
[2020-09-24 07:05] VITALS: PULSE 96
[2020-09-24] MEDS: Acetaminophen 325 MG TAB PO (07:17)
[2020-09-24 07:36] LABS: Abs Immature Grans 0.03 10^3/uL (0.0-0.06); Absolute Basophil Count 0.02 10^3/uL (0.0-0.2); Absolute Lymphocyte Count 2.04 10^3/uL (1.2-3.4); Absolute Monocyte Count 0.75 10^3/uL (0.1-0.8); Absolute Neutrophil Count 6.24 10^3/uL (1.2-6.7); Basophils % 0.2; Eosinophils % 3.2; HCT 39.1 % (36.0-46.0); HGB 12.4 g/dL (11.2-15.7); Immature Grans % 0.3; Lymphocytes % 21.7; MCH 27.1 pg (27.0-33.0); MCHC 31.7 % (32.0-36.0); MCV 85.4 fL (80-95); Neutrophils % 66.6; Nucleated RBC 0 %; Platelet Count 228 10^3/uL (130-400); RBC 4.58 10^6/uL (3.93-5.22); RDW 12.5 % (11.7-14.6); RDW-SD 38.6 fL; WBC 9.38 10^3/uL (4.4-10.8)
[2020-09-24 07:43] LABS: Anion Gap 9.2 mmol/L (3-11); BUN 7 mg/dL (7-18); CO2 24.8 mmol/L (21.0-32.0); CREATININE 0.9 mg/dL (0.55-1.02); Calcium 8.4 mg/dL (8.5-10.1); Chloride 105 mmol/L (98-107); Glucose 96 mg/dL (74-106); Magnesium 1.6 mg/dL (1.8-2.4); Potassium 4.3 mmol/L (3.5-5.1); Sodium 139 mmol/L (136-145)
[2020-09-24 08:21] VITALS: BP 143/85; PULSE 66; RESP 18; TEMP 36.4; O2SAT 98
[2020-09-24 10:05] VITALS: PULSE 65; PULSE 66; PULSE 76; RESP 17; RESP 19; O2SAT 94; O2SAT 97; O2SAT 98
[2020-09-24] MEDS: oxyCODONE 5 mg/Acetaminophen 325 mg TAB 1 TAB PO (10:07)
[2020-09-24] MEDS: MAGNESIUM SULFATE 4 GM/100 ML BAG IVPB (10:07)
[2020-09-24] MEDS: Normal Saline Flush 10 ML SYR IVP (10:08)
--- NOTE | 2020-09-24 10:15 | DSE_ITS ---
Date of service: 09/24/20 Time of Service: 10:15 DS: Diagnosis Discharge Diagnosis (1) Pulmonary embolism: Start date: 09/24/20 Start time: 10:16 Status: Acute Asessment and Plan: Found by CTA, bilateral PE in both Lower lobes, contributing factors, post , patient gave in June on oral contraceptives, smoker, and sits at a desk all day. She was initiated on enoxaparin 1 mg/kg she is being transitioned to oral DOAC, she will be on 10 mg po bid x 7 days then down grade to 5 mg po bid. She will need to follow up with PCP in next 2 weeks. Recommend possible hematology referral will defer to PCP for this. She denies CP, SOB 100% on RA when sitting; ambulatory she does have some lower lobe pain with posterior chest pain. Ambulatory pulse ox decrease to 94% with ambulation however no SOB. She will discharged home with percocet for pain. She is not breast feeding and continues to work. US negative for DVT bilaterally. She feels great and is being discharged home (2) Tobacco abuse: Start date: 09/24/20 Start time: 10:35 Status: Acute Asessment and Plan: Encourage cessation. Discharge Plan Disposition Patient Disposition: HOME Condition: Stable Discharge Details Reason For Visit: Acute bilateral PEs Admit Date/Time: 09/23/20 13:17 Admit Provider: Estella Solomon Attending Provider: Estella Solomon [facility]: 29 y.o female with no significant PMH presents to [facility] after having ongoing pain to right posterior chest since at work on Friday. Work up in the ED revealing WBC of 11.7, DDimer 5080, CT with acute bilateral pulmonary arterial emboli with questionable very small posterior right lower lobe infarct, no right heart strain, no requiring oxygen. US negative for bilateral DVT. She is currently on oral contraceptives, and a tobacco user. Also given in June not currently breast feeding. She was asked to be [place] [facility] [place]. She was admitted overnight to [facility] [place]. Initiated on enoxaparin. Today she is doing well transitioned to apixaban for discharge, she is not breast feeding. Tramadol was not helpful for pain; therefore she will be given percocet. She will start apixaban tonight. Follow up with PCP in 1 week, recommend hematology but defer to PCP for recommendation, as she does have multiple reasons for having PE. Recommend smoking cessation. She denies CP, SOB. Home Meds and New Rx's Prescriptions: New apixaban 5 mg tablet 5 mg PO BID Qty: 44 RF: 0 oxycodone-acetaminophen 5-325 mg Tablet 1 tab PO Q4H PRN PRNQty: 20 RF: 0 Continued pantoprazole 40 mg tablet,delayed release (DR/EC) 40 mg PO DAILY RF: 0 Discharge Instructions Instructions: Apixaban (By mouth), Pulmonary Embolism (GEN), How to Stop Smoking (DC), How Your Lungs Work (DC) Additional Instructions: Start apixaban tonight. Take 10 mg twice a day x 14 days, then step down to 5 mg twice daily for at least 3-6 months until told to discontinue. PCP will continue to refill medication Follow up with PCP in 1 week If you have any bloody stool or dark stool get to the hospital right away Take protonix daily Try to quit smoking this is very important in setting of taking oral contraceptives and contributes to blood clots. Stand Alone Forms: Nursing Discharge Form Referrals: Lisa Castellano MD [Primary Care Provider] - (call pcp tomorrow for an appt in one week) Activity:: Activity as Tolerated Equipment/Supplies:: No Equipment Needed Diet:: As Tolerated Discharge Orders Discharge Orders: Discharge Order (Routine); Ordered 09/24/20 Ordered By: Irene Thomas DS: Summary Time Spent with Patient providing and/or coordinating discharge services: Less than 30 minutes Status at Discharge Functional status at discharge: independent ambulation Overall status at discharge: patient is progressing back to baseline Mental Status: mental status grossly normal Speech and Movement: speech and movement normal Mood: congruent mood Affect: normal affect Exam Const General: cooperative, healthy appearing, comfortable and no acute distress Nutritional Appearance: overweight Orientation: alert, awake and oriented x3 Eyes General: appearance normal, both eyes and all related structures EOM: EOM intact bilaterally Neck Neck: normal visual inspection Lymphatic: no lymphadenopathy noted Resp Effort & Inspection: normal respiratory effort and able to speak in complete sentences Auscultation: clear to auscultation bilaterally Cardio Jugular venous pressure: no JVD Rate: regular rate Rhythm: regular rhythm Heart Sounds: S1 normal and S2 normal GI Inspection: normal to inspection Palpation: soft Auscultation: normal bowel sounds Skin General skin exam: no rashes or lesions noted Neuro General: patient alert, patient awake and patient oriented x3 Extrem General: no clubbing, cyanosis or edema Psych Mental Status: mental status grossly normal Speech and Movement: speech and movement normal Mood: congruent mood Affect: normal affect DS: Data Vitals/I&O Vitals and I&O: Vital Signs Temperature 36.4 C L 09/24/20 08:21 Temperature Source Tympanic 09/24/20 08:21 Pulse 66 09/24/20 08:21 Pulse Rhythm Regular 09/23/20 23:50 Pulse 68 09/23/20 14:50 Respiratory Rate 18 09/24/20 08:21 Respiratory Effort Non-Labored 09/23/20 23:50 Respiratory Depth Normal 09/23/20 23:50 Respiratory Pattern Normal 09/23/20 23:50 Blood Pressure 143/85 H 09/24/20 08:21 Blood Pressure Mean 92 09/23/20 14:31 Blood Pressure Position Sitting 09/23/20 10:05 Pulse Oximetry 98 09/24/20 08:21 Oxygen Delivery Method Room Air 09/24/20 08:21 Oxygen Flow Rate 0 09/24/20 08:21 Pain Level 6 09/24/20 10:07 Comment notified pending prn nausea meds 09/23/20 19:25 Intake & Output 09/23/20 09/23/20 09/24/20 11:59 23:59 11:59 Intake Total 970 / 970 Output Total 500 / 500 1425 / 1425 Balance 1477.5 / 1487.5 -455 / -455 Weight 112.1 kg 107 kg Intake: IV 970 / 970 Output: Urine 500 / 500 1425 / 1425 Other: Urine Color [place] Yellow Urine Appearance Clear Clear Urine Odor Normal Normal Voiding Methods Toilet Toilet Data Completed and Pending Completed studies during hospitalization [Text1]: Exam(s) a CT:CT chest PE CTA Exam(s) CT CHEST PE CTA EXAM: CT CHEST PE CTA CLINICAL HISTORY: R posterior chest pain, elev ddimer. TECHNIQUE: Imaging Protocol: CT angiography of the chest was performed using p [facility] embolus protocol. Multi planar reconstructions were performed. CONTRAST MATERIAL: Intravenous: Omnipaque 350 Contrast volume: 88 cc COMPARISON: No exams were available for comparison FINDINGS: CHEST: PULMONARY ARTERIES: There are multiple bilateral intra arterial filling defects consistent with acute pulmonary emboli bilaterally. These are evident in both lower lobes. There are no emboli in the main pulmonary arteries. LUNGS: . There is mild infiltrate in the posterior basal segments of both lower lobes. No pleural effusions. No findings in the trachea and mainstem bron chi.. MEDIASTINUM: There is no hilar nor mediastinal adenopathy. CARDIAC: Heart size is upper normal. There is no pericardial effusion.Caliber of the thoracic aorta is within normal limits. There is no significant shift of the interventricular septum. PARTIALLY VISUALIZED UPPERMOST ABDOMEN: Hepatic steatosis. OSSEOUS: No significant osseous lesions.. IMPRESSION: 1. This study is positive for acute bilateral pulmonary emboli, mostly in both lower lobes..No obvious pulmonary infarction although there is mild infiltrate in the posterior basal segments of both lower lobes. There are no pleural effusions. 2. Heart size upper normal. There is no pericardial effusion. No obvious right heart strain. Exam(s) US EXTREMITY VENOUS BI EXAM: US EXTREMITY VENOUS BI CLINICAL HISTORY: R poserior chest pain, probable PE TECHNIQUE: Grayscale, color, and doppler imaging of the deep venous system of both lower extremities was performed. COMPARISON: None FINDINGS: There is no evidence of intraluminal thrombus and there is normal compression and augmentation demonstrated within the common femoral veins, femoral veins, and popliteal veins of both lower extremities. In the calves the interrogated veins also exhibit normal compression/ augmentation properties. The greater saphenous veins also appear patent as do the saphenofemoral junctions bilaterally.. Exam(s) US EXTREMITY VENOUS BI EXAM: US EXTREMITY VENOUS BI CLINICAL HISTORY: R poserior chest pain, probable PE TECHNIQUE: Grayscale, color, and doppler imaging of the deep venous system of both lower extremities was performed. COMPARISON: None FINDINGS: There is no evidence of intraluminal thrombus and there is normal compression and augmentation demonstrated within the common femoral veins, femoral veins, and popliteal veins of both lower extremities. In the calves the interrogated veins also exhibit normal compression/ augmentation properties. The greater saphenous veins also appear patent as do the saphenofemoral junctions bilaterally.. IMPRESSION: 1. No ultrasound evidence of DVT in either lower extremity. Exam(s) Addendum created by Tigre Granger MD on 09/23/2020 12:33:18 PM EDT: THIS REPORT CONTAINS FINDINGS THAT MAY BE CRITICAL TO PATIENT CARE. The findings were verbally communicated via telephone conference with HELDER GARCIA at 12:33 PM EDT on 09/23/2020. The findings were acknowledged and understood. Initial report created on 09/23/2020 12:26:09 PM EDT: PROCEDURE INFORMATION: Exam: CTA Chest With Contrast Exam date and time: 09/23/2020 11:22 AM Age: 29 years old Clinical indication: Other: R posterior cp, elev d-dimer TECHNIQUE: Imaging protocol: Computed tomographic angiography of the chest with contrast. 3D rendering (Not supervised by radiologist): MIP and/or 3D reconstructed images were created by the technologist. Radiation optimization: All CT scans at this facility use at least one of these dose optimization techniques: automated exposure control; mA and/or kV adjustment per patient size (includes targeted exams where dose is matched to clinical indication); or iterative reconstruction. Contrast material: OMINPAQUE 350; Contrast volume: 88 ml; Contrast route: INTRAVENOUS (IV); COMPARISON: SD US ABDOMEN LIMITED 11/05/2019 1:42 PM FINDINGS: Limitations: None. Pulmonary arteries: Acute pulmonary intra arterial filling defects are seen bilaterally such as in left lobar branch, left lower lobe segmental arteries, in the branch to inferior lingula and in distal most right into lobar artery and in multiple right lower lobe segmental and more distal branches. The vessels are not enlarged. Aorta: Normal. Great vessels off aortic arch: Unremarkable. Trachea: Normal. Bronchial tree: Normal caliber. No endobronchial masses or stenoses. Lungs: Atelectasis versus small infarct in the inferior posterior right lower lobe. Pleural spaces: Normal. Heart: The RV/LV ratio is approximately 0.8. Coronary arteries: Normal. Lymph nodes: No enlarged or otherwise suspicious axillary, mediastinal or hilar adenopathy. Bones/joints: No acute fracture or suspicious lesion. Soft tissues: Normal. IMPRESSION: Acute bilateral pulmonary arterial emboli with questionable very small posterior right lower lobe infarct. Negative for evidence of right heart strain nor is there pericardial effusion or pulmonary edema. Labs on day of discharge: Labs from last 24 hours 09/24/20 09/24/2009/23/21 07:09 07:09 13:52 WBC 9.38 RBC 4.58 Hgb 12.4 Hct 39.1 MCV 85.4 MCH 27.1 MCHC 31.7 L RDW 12.5 Plt Count 228 MPV 10.0 Immature Gran % 0.3 Neutrophils % 66.6 Lymphocytes % 21.7 Monocytes % 8.0 Eosinophils % 3.2 Basophils % 0.2 Nucleated RBC % 0 Absolute Neutrophils 6.24 Absolute Lymphocytes 2.04 Absolute Monocytes 0.75 Absolute Eosinophils 0.30 Absolute Basophils 0.02 D-Dimer Sodium 139 Potassium 4.3 Chloride 105 Carbon Dioxide 24.8 Anion Gap 9.2 BUN 7 Creatinine 0.9 Estimated GFR/1.73 m2 >= 60.00 Glucose 96 Calcium 8.4 L Magnesium 1.6 L Total Bilirubin AST ALT Alkaline Phosphatase Troponin I Total Protein Albumin Urine Color Urine Clarity Urine pH Ur Specific [place] Urine Protein Urine Ketones Urine Blood Urine Nitrite Urine Bilirubin Urine Urobilinogen Ur Leukocyte Esterase Urine Glucose COVID-19 Source Nasal/nares SARS-CoV-2 (PCR) Negative 09/23/20 09/23/20 09/23/20 13:40 11:00 10:40 WBC RBC Hgb Hct MCV MCH MCHC RDW Plt Count MPV Immature Gran % Neutrophils % Lymphocytes % Monocytes % Eosinophils % Basophils % Nucleated RBC % Absolute Neutrophils Absolute Lymphocytes Absolute Monocytes Absolute Eosinophils Absolute Basophils D-Dimer 5080 H Sodium Potassium Chloride Carbon Dioxide Anion Gap BUN Creatinine Estimated GFR/1.73 m2 Glucose Calcium Magnesium Total Bilirubin AST ALT Alkaline Phosphatase Troponin I < 0.05 Total Protein Albumin Urine Color Yellow Urine Clarity Clear Urine pH 6.0 Ur Specific [place] 1.020 Urine Protein Negative Urine Ketones Negative Urine Blood Negative Urine Nitrite Negative Urine Bilirubin Negative Urine Urobilinogen 0.2 Ur Leukocyte Esterase Negative Urine Glucose Negative COVID-19 Source SARS-CoV-2 (PCR) 09/23/20 09/23/20 10:40 10:40 WBC 11.71 H RBC 5.02 Hgb 13.7 Hct 43.0 MCV 85.7 MCH 27.3 MCHC 31.9 L RDW 12.4 Plt Count 238 MPV 9.8 Immature Gran % 0.4 Neutrophils % 76.4 Lymphocytes % 13.7 Monocytes % 6.3 Eosinophils % 2.9 Basophils % 0.3 Nucleated RBC % 0 Absolute Neutrophils 8.95 H Absolute Lymphocytes 1.60 Absolute Monocytes 0.74 Absolute Eosinophils 0.34 Absolute Basophils 0.04 D-Dimer Sodium 141 Potassium 4.2 Chloride 104 Carbon Dioxide 26.7 Anion Gap 10.3 BUN 12 Creatinine 0.9 Estimated GFR/1.73 m2 >= 60.00 Glucose 104 Calcium 9.3 Magnesium 1.8 Total Bilirubin 0.4 AST 11 L ALT 24 Alkaline Phosphatase 62 Troponin I < 0.05 Total Protein 8.1 Albumin 3.7 Urine Color Urine Clarity Urine pH Ur Specific [place] Urine Protein Urine Ketones Urine Blood Urine Nitrite Urine Bilirubin Urine Urobilinogen Ur Leukocyte Esterase Urine Glucose COVID-19 Source SARS-CoV-2 (PCR) [facility] Social History Smoking/Tobacco Use Status: Current every day Tobacco Type: cigarettes Smoking risk assessment performed?: Yes Alcohol Intake: current Alcohol Intake frequency: a few times a month Drug use: Occasionally Substance use type: marijuana Do you feel safe at home: Yes Do you feel safe in your relationship?: Yes
--- NOTE | 2020-09-24 10:32 | PDOC.CMPRO ---
- If Service Date Differs Date of service: 09/24/20 Time of Service: 10:33 Care Management Progress Note S/O: Bernadine is a 29 year old female, admitted to [facility] for bilateral PE's. 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 She has a three month old son, Alexander, with her s/o Lenny. She has support from her mother and sister as well. She is independent at baseline. GEORGETTE was asked to assist with prescription support, as she will be discharged this morning with a new prescription for Eliquis. CM assisted Bernadine with activation of the coupon card available, and faxed the card to [facility] in [place]. Her copay reduced from $60/month to $10/month with the coupon card. Her sister is driving her home via private vehicle. She is very excited to see her son, who she has not spent a night away from since his until now. CM will continue to follow. A: Bernadine is a 29 year old female admitted to [facility] on 09/23/20 with acute bilateral PE's. P: Bernadine is being discharged this morning with no services. She will be driven home via private vehicle by her sister. She has a new prescription for Eliquis, with a copay of $10, with the use of a coupon, provided by GEORGETTE. She will follow up with her PCP and discharge plan of care. She is happy to be returning home.
== END 2020-09-24 11:38 | disposition home or self-care (01) ==
LOC: ER 13:49 → MS 15:35
PROVIDERS: Admitting Provider Internal Medicine; Emergency Provider Emergency Medicine; PCP Family Medicine; Visit Provider Internal Medicine
DX: I26.99 Other pulmonary embolism without acute cor pulmonale (principal); F17.210 Nicotine dependence, cigarettes, uncomplicated; Z79.3 Long term (current) use of hormonal contraceptives
CPT/HCPCS: 36415; 71275; 80048; 80053; 81025; 87635; 93005; 94618; 96361; 96372; 96374; 96375; 99285; 81003; 83735; 84484; 85025; 85379; 93010; 93970; 99217; 99219; 99284; G0378; J1650; J1885; J2270; J2405; J3475; J3490

== ENCOUNTER 2020-11-09 22:38 | Emergency (ER) | payer BC, SELFPAY ==
--- NOTE | 2020-11-09 22:30 | RT.EKG_ITS ---
APPROVED REPORT Exam: Resting ECG Reason for Exam: CHEST PAIN Patient Location: E HR:74 bpm ECG Measurements Heart Rate [address] 200 P 43 QRSd 87 QRS 38 QT 387 T 31 QTc 431 Conclusion Sinus rhythm...normal P axis, V-rate 60- 99 There are no significant changes compared to prior EKG performed on 09/23/2020 at 10:33.
[2020-11-09 22:45] VITALS: BP 155/73; PULSE 79; RESP 16; TEMP 36.4; O2SAT 99
--- NOTE | 2020-11-09 22:45 | DI.CT_ITS ---
Exam(s) CT CHEST PE CTA EXAM: CT CHEST PE CTA CLINICAL HISTORY: R thoracic back pain. TECHNIQUE: Imaging Protocol: Axial CT angiography was performed with multi-slice acquisition and mu lti-planar and/or 3D reconstructions. CONTRAST MATERIAL: Intravenous: Omnipaque 350 Contrast volume:structured data in ml COMPARISON: CT CT CHEST PE CTA from 09/23/2020 FINDINGS: CT angiography of the chest was performed with intravenous infusion of 100 cc of Omnipaque 350. Lungs are predominantly clear. There is a 14 millimeter in diameter rounded nodule which is pleural- based at the right lung base period this lies in in area of previously noted ground-glass opacity and atelectasis seen on prior CT of September 23 of this year. Findings may represent atelectasis, mass no t excluded. Follow-up chest CT recommended in 3 months. No pleural effusion. Tracheobronchial tree appears intact. No evidence of pulmonary embolic disease. Thoracic aorta is of normal diameter, no thoracic aortic an eurysm or dissection, major branch vessels appear intact. No mediastinal or hilar adenopathy. Images obtained through the upper abdomen show unremarkable appearance of the visualized portions of the liver, spleen, pancreas, adrenals, and kidneys. IMPRESSION: No evidence of pulmonary embolic disease. 14 millimeter right basilar lung nodule which may represent resolving atelectasis and/or consolidatio n. Mass not excluded and a follow-up CT of the chest is recommended in 3 months. Please see above d iscussion. RADIATION DOSE DELIVERED: 603.36mGy.cm Total DLP 603.36mGy.cm Total DLP CTDIvol DATA REPOSITORY: All CT scans at this facility are submitted to the National Radiology Data Registry (NRDR) Dose Index Registry (DIR) with the [employer] (A[employer]). RADIATION OPTIMIZATION: All CT scans at this facility use at least one of these dose optimization te chniques: automated exposure control; mA and/or kV adjustment per patient size (includes targeted exa ms where dose is matched to clinical indication); or iterative reconstruction.
--- NOTE | 2020-11-09 22:48 | ED.GENADUL_ITS ---
Discharge Plan Disposition Patient Disposition: HOME Condition: Good Discharge Details Clinical Impression: Back pain, thoracic Primary Care Provider: Lisa Castellano ED Provider: Junior Dudley [place] Meds and New Rx's Prescriptions: Continued apixaban 5 mg tablet 5 mg PO BID Qty: 44 RF: 0 Discharge Instructions Additional Instructions: CT scan is completely normal. There is no evidence of PE. Try Tylenol and heat to see if this. Follow-up with primary care next week if it continues to bother you. Return to ED for new or worsening pain, shortness of breath, fever, other concerns. Referrals: Lisa Castellano MD [Primary Care Provider] - Medical Decision Making Patient presenting with right thoracic back pain similar to when she had her PE. She is on Eliquis and denies any missed doses. She does not appear in distress and has normal vitals and room air pulse ox. Exam is unremarkable. EKG sinus rhythm and unchanged from previous. Given recent PE, despite being on Eliquis, will proceed with CT after test. Otherwise, I do not feel laboratory studies are indicated. Patient declines anything for pain. CTA of chest is normal. No PE present. Patient be discharged home follow-up with primary care as needed. May use Tylenol for pain. Return to ED for new or worsening symptoms including fever, shortness of breath, new or worsening pain. Medical Records Medical records reviewed: Yes I reviewed the patient's medical records. ECG Data Attestation: I personally reviewed and interpreted this ECG (s) as follows: Interpretation: see EKG HPI General Mode of arrival: ambulatory . Date/Time Provider Initiated Documentation: 11/09/20 22:38 . Limitations to Documentation: no limitations . Information obtained by: patient, RN notes reviewed and old records reviewed . HPI Narrative: Patient presents to the ED with pleuritic right thoracic back pain that reminds her of previous pain in September when she was diagnosed with pulmonary embolus. Onset of pain was this evening. It is not severe. There is no associated fever, cough, shortness of breath. She has no leg pain or swelling. She has no abdominal complaints. She denies any missed doses of her Eliquis. She is very concerned for recurrent PE. Related Data Home Medications Medication Instructions Recorded Confirmed apixaban 5 mg PO BID #44 tab 09/23/20 11/09/20 Previous Rx's Medication Instructions Recorded apixaban 5 mg PO BID #44 tab 09/23/20 Allergies Allergy/AdvReac Type Severity Reaction Status Date / Time No Known Allergies Allergy Unverified 11/09/20 22:48 General Stated Complaint: Chest Pain MILA: 3 Review of Systems Narrative: As documented in HPI otherwise negative as below. Const: no fever, chills, weakness Resp: no cough, SOB CV: no CP, diaphoresis, edema, syncope GI: no abdominal pain, nausea, vomiting, diarrhea Neuro: no headache, numbness, focal weakness, confusion PFSH Medical History Constipation, chronic Female infertility Obesity Prediabetes Pulmonary embolism Skin lesion Tobacco use Social History Smoking/Tobacco Use Status: Current every day Tobacco Type: cigarettes Smoking risk assessment performed?: Yes Alcohol Intake: current Alcohol Intake frequency: a few times a month Drug use: Occasionally Substance use type: marijuana Do you feel safe at home: Yes Do you feel safe in your relationship?: Yes Exam Narrative Exam Narrative: Const: Obese female in NAD. HEENT: NC/AT. Normal facial exam. Eyes: Normal conjunctiva and sclera. Neck: Supple. Trachea midline. Lungs: Normal respiratory effort. Lungs are clear. Cor: RRR without murmur/gallop. Good radial pulses. GI: Soft. NT/ND. No guarding or rebound. Neuro: A+O x 3. Normal speech, mentation, gait. Cranial nerves II - XII grossly intact. No gross motor or sensory deficit. Ext: No C/C/E. No calf tenderness. Skin: Warm and dry without rash. Course Vital Signs Vital signs: Vital Signs Temperature 97.5 F L 11/09/20 22:45 Pulse 79 11/09/20 22:45 Respiratory Rate 16 11/09/20 22:45 Blood Pressure 155/73 H 11/09/20 22:45 Pulse Oximetry 99 11/09/20 22:45 Temperature 97.5 F L 11/09/20 22:45 Temperature Source Tympanic 11/09/20 22:45 Pulse 79 11/09/20 22:45 Respiratory Rate 16 11/09/20 22:45 Blood Pressure 155/73 H 11/09/20 22:45 Blood Pressure Position Sitting 11/09/20 22:45 Pulse Oximetry 99 08/05/21 22:45 Oxygen Delivery Method Room Air 11/09/20 22:45 Oxygen Flow Rate 0 11/09/20 22:45 Pain Level 3 11/09/20 22:45
[2020-11-09] MEDS: Normal Saline - Diluent 50 ML VIAL IV (23:13)
[2020-11-09] MEDS: Omnipaque 350 MG/ML 100 ML BTL IJ (23:14)
--- NOTE | 2020-11-09 23:48 | DI.VRAD_ITS ---
PROCEDURE INFORMATION: Exam: CTA Chest With Contrast Exam date and time: 11/09/2020 11:00 PM Age: 29 years old Clinical indication: Other: Pe in September; Pain is same; On eliquis TECHNIQUE: Imaging protocol: Computed tomographic angiography of the chest with contrast. 3D rendering (Not supervised by radiologist): MIP and/or 3D reconstructed images were created by the technologist. Contrast material: OMNIPAQUE 350; Contrast volume: 100 ml; Contrast route: INTRAVENOUS (IV); COMPARISON: CT CHEST PE CTA 09/23/2020 11:42 AM FINDINGS: Pulmonary arteries: Unremarkable. No pulmonary emboli. Aorta: Unremarkable. No aortic aneurysm. No aortic dissection. Lungs: Unremarkable. No consolidation. No masses. Pleural spaces: Unremarkable. No pneumothorax. No pleural effusion. Heart: Unremarkable. No cardiomegaly. No pericardial effusion. Lymph nodes: Unremarkable. No enlarged lymph nodes. Bones/joints: Unremarkable. No acute fracture. Soft tissues: Unremarkable. IMPRESSION: No evidence for pulmonary embolism. Dictated and Authenticated by: Elliott Hardwick MD. Ordering:MATT Pacheco MD
--- NOTE | 2020-11-11 16:51 | NUR.NOTE ---
Nursing Note: referral to care management for patient to have repeat chest ct. question of pulmonary mass follow up withing 1-2 weeks - 11/10/20 libl
== END 2020-11-10 00:05 | disposition home or self-care (01) ==
PROVIDERS: Emergency Provider Emergency Medicine; PCP Family Medicine
DX: R91.1 Solitary pulmonary nodule (principal); M54.6 Pain in thoracic spine; Z79.01 Long term (current) use of anticoagulants; Z86.711 Personal history of pulmonary embolism; R07.9 Chest pain, unspecified
CPT/HCPCS: 36415; 71275; 81025; 93005; 99285; 93010; 99284; J3490

== ENCOUNTER 2020-11-17 03:06 | Outpatient (CLI) | payer BC, SELFPAY ==
--- NOTE | 2020-11-17 07:00 | DI.NM_ITS ---
Exam(s) NM HEPATOBILIARY CCK GRP EXAM: NM HEPATOBILIARY CCK GRP CLINICAL HISTORY: neg US, ? dyskinesia,epigastric abd pain,r10.13. TECHNIQUE: Injected dose: 4.8 mCi Tc-99 mebrofenin Post-Gallbladder fillin.7 mcg CCK administered according to protocol. COMPARISON: No exams were available for comparison FINDINGS: Normal hepatic transit time. Prompt excretion into the small bowel. Prompt excretion into the gallbladder. The gallbladder ejection fraction is 52 percent. ([facility] michael l gallbladder ejection fraction is greater than 40 percent). IMPRESSION: 1. CCK HIDA scan within normal limits. SN guidelines: Gallbladder visualization should be present by 3 hours. Delayed [id number] duval sit beyond 60 min raises the suspicion for partial common bile duct (CBD) obstruction. Gallbladder ejection fraction <35% has a good correlation with acalculous disease (i.e., chronic acal culous cholecystitis, cystic duct syndrome, sphincter of Oddi disease).
[2020-11-17] MEDS: Sincalide 5 MCG VIAL 1.7 MCG IJ (11:48)
== END 2020-11-17 03:26 ==
PROVIDERS: PCP Family Medicine; Visit Provider Surgery
DX: R10.13 Epigastric pain (principal)
CPT/HCPCS: 78227

== ENCOUNTER 2020-12-01 01:22 | Outpatient (CLI) | payer BC, SELFPAY ==
[2020-12-01 11:36] LABS: Source Nasal/Nares
[2020-12-01 16:58] LABS: COVID-19 PCR Negative (Negative)
== END 2020-12-01 01:23 | disposition home or self-care (01) ==
LOC: LBO 01:23
PROVIDERS: PCP Family Medicine; Visit Provider Surgery
DX: Z20.822 Contact with and (suspected) exposure to COVID-19 (principal); Z01.818 Encounter for other preprocedural examination
CPT/HCPCS: 87635

== ENCOUNTER 2020-12-12 14:19 | Outpatient (CLI) | payer BC, SELFPAY ==
[2020-12-12 09:52] LABS: Source Nasal/Nares
[2020-12-12 13:42] LABS: COVID-19 PCR Negative (Negative)
== END 2020-12-12 14:20 | disposition home or self-care (01) ==
LOC: LBO 14:20
PROVIDERS: PCP Family Medicine; Visit Provider Surgery
DX: Z20.822 Contact with and (suspected) exposure to COVID-19 (principal); Z01.818 Encounter for other preprocedural examination
CPT/HCPCS: 87635

== ENCOUNTER 2020-12-18 03:44 | Outpatient (CLI) | payer BC, SELFPAY ==
[2020-12-18 11:08] LABS: Source Nasal/Nares
[2020-12-18 13:08] LABS: COVID-19 PCR Negative (Negative)
== END 2020-12-18 03:45 | disposition home or self-care (01) ==
PROVIDERS: PCP Family Medicine; Visit Provider Surgery
DX: Z20.822 Contact with and (suspected) exposure to COVID-19 (principal); Z01.818 Encounter for other preprocedural examination
CPT/HCPCS: 87635

== ENCOUNTER 2021-01-01 02:54 | Outpatient (CLI) | payer BC, SELFPAY ==
[2021-01-01 10:37] LABS: Source Nasal/Nares
[2021-01-01 17:13] LABS: COVID-19 PCR Negative (Negative)
== END 2021-01-01 02:55 | disposition home or self-care (01) ==
PROVIDERS: PCP Family Medicine; Visit Provider Surgery
DX: Z20.822 Contact with and (suspected) exposure to COVID-19 (principal); Z01.818 Encounter for other preprocedural examination
CPT/HCPCS: 87635

== ENCOUNTER 2021-01-03 08:47 | Day surgery (SDC) | payer BC, SELFPAY ==
--- NOTE | 2021-01-03 07:13 | HPE_ITS ---
Date of service: 01/03/21 Time of Service: :29 Assessment and Plan Assessment and plan (1) Abdominal pain, epigastric: Status: Acute Assessment and plan: Mrs Ridley is a pleasant 29-year-old female who is 4 months who has been having epigastric pain and bloating since September 2019. She has had 3 different ultrasounds done which all showed a normal gallbladder, normal liver and normal bile ducts. She was trialed on omeprazole 40 mg daily which she feels made her symptoms worse. She has not tried being on a low-fat diet. On exam her pain is epigastric. Differential includes gastritis versus biliary dyskinesia. HIDA scan was ordered and was normal. Discussed proceeding with an EGD first. Risks, benefits and complications have been reviewed. Complications include but are not limited to bleeding, pain, perforation, sore throat, aspiration, and adverse reaction to the medications. Questions were entertained and answered to their satisfaction and they wished to proceed. No guarantees were given or implied. [place] under [facility] [place] [facility] [place] History of Present Illness Narrative: Mrs Ridley is a pleasant 29-year-old female who has been having epigastric pain and nausea since September 2019. She has undergone 3 ultrasounds which have all been negative for gallstones, gallbladder wall thickening, cystic or common duct dilation or pericholecystic fluid. She is now 4 months and continues to have epigastric pain with eating as well as nausea. She also feels bloated. Her pain is in the epigastrium it does not radiate to the back. She tells me that her mother had this similar pain and had a negative ultrasound. Eventually she did have her gallbladder removed and felt better. Ms. Coulter' past medical history is complicated by PE in September 2019 which is felt to be due to control pills. She is now on Eliquis twice daily. She denies any weight loss or vomiting. Pain location: epigastric Current symptoms: Reports nausea and food intolerance; Denies fever(s) Pain type: sharp and intermittent Onset: >1 year Exacerbated by: alcohol, fatty foods, caffeine, spicy foods and other Associated symptoms: Reports nausea No changes in her health since she was last seen Review of Systems Cardiovascular Cardiovascular: Denies chest pain, Denies chest pain at rest, Denies irregular heart rhythm, Denies dyspnea and Denies dyspnea on exertion Respiratory Respiratory: Denies cough, Denies dyspnea and Denies dyspnea on exertion Gastrointestinal Gastrointestinal: Reports as per HPI Genitourinary Genitourinary: Denies dysuria, Denies urinary incontinence and Denies urinary urgency Endocrine Endocrine: Reports system reviewed and no additional complaints, except as documented Hematologic/Lymphatic Hematologic/Lymphatic: Denies easy bruising and Denies lymphadenopathy PFSH Medical History Constipation, chronic Female infertility IUD (intrauterine device) in place Obesity Prediabetes Pulmonary embolism Skin lesion Tobacco use Surgical History (Updated 01/03/21 @ 09:10 by Adeola Alatorre RN) Hx of knee surgery b/l lateral release Social History Smoking/Tobacco Use Status: Former Tobacco Use Quit Date: 12/28/20 Smoking risk assessment performed?: Yes Alcohol Intake: current Alcohol Intake frequency: a few times a month Alcohol type: beer, wine and hard liquor Drug use: Occasionally Substance use type: does not use Details: Pt states she no longer smokes, so she no longer smokes marijuana Do you feel safe at home: Yes Do you feel safe in your relationship?: Yes Meds Allergies and Home Medications Allergies Allergy/AdvReac Type Severity Reaction Status Date / Time No Known Allergies Allergy Unverified 01/03/21 09:11 Home Medications Medication Instructions Recorded Confirmed Type apixaban 5 mg PO BID #44 tab 09/23/20 01/03/21 Rx acetaminophen [Tylenol] 650 mg PO ONCE 01/03/21 01/03/21 History Exam Const General: healthy appearing and comfortable Resp Effort & Inspection: normal respiratory effort Auscultation: clear to auscultation bilaterally Cardio Rate: regular rate Rhythm: regular rhythm Heart Sounds: no click, no gallops and no murmurs
--- NOTE | 2021-01-03 07:16 | W.PM.DSUDISC ---
Discharge Plan Disposition Patient Disposition: HOME Condition: Good Discharge Details Reason For Visit: EGD Attending Provider: Alena Weller Primary Care Provider: Lisa Castellano Home Meds and New Rx's Prescriptions: New famotidine [Pepcid] 40 mg tablet 40 mg PO QHS Qty: 30 RF: 0 Continued apixaban 5 mg tablet 5 mg PO BID Qty: 44 RF: 0 acetaminophen [Tylenol] 325 mg Tablet 650 mg PO ONCE RF: 0 Discharge Instructions Instructions: Diet for Stomach Ulcers and Gastritis (ED), Gastritis (DC), GERD (Gastroesophageal Reflux Disease) (DC) Additional Instructions: Findings: Inflammation of the stomach and esophagus Follow up: 2 weeks in the office Please call if you develop: fevers >101.5 Nausea or Vomiting Abdominal pain that is not transient Rectal bleeding that is more then a tbsp A hard abdomen and inability to pass gas DAY SURGERY UNIT POST ENDOSCOPY INSTRUCTIONS Instructions for everyone who is given Anesthesia: For your safety, please do the following for the next 24 Hours: a. Do not drive or operate dangerous equipment b. Do not drink alcohol beverages or use any recreational drugs for the first 24 hours or while taking pain medications. The medications in your body may have a reaction that can be dangerous. c. Do not make any important decisions or sign any important papers 1. Generally there are no restrictions on your activity after a day or so has gone by, but you may feel a bit fatigued for a few days. 2. After you arrive home you may have a light meal and return to a normal diet as you can tolerate it without feeling sick to your stomach. 3. After surgery, you may feel pain or discomfort. This should be only transient, but if it persists please contact your doctor. 4. If there are any questions regarding the findings of your procedure, please feel free to contact your doctor. 6. If you are unable to contact your doctor with a problem, contact the hospital at [phone]. 7. Continue all your regular medications unless directed otherwise. I understand the above instructions and have no questions. Signature of Patient or Responsible Adult Escort Date/Time Name of Responsible Adult Escort Signature of Nurse Date/Time Activity:: Activity as Tolerated Diet:: low acid/low fat DS: Diagnosis Discharge Diagnosis (1) Abdominal pain, epigastric: Status: Acute
--- NOTE | 2021-01-03 07:22 | ENDO_ITS ---
Date of service: 01/03/21 Time of Service: 11:00 Endoscopy Report DATE OF PROCEDURE: 01/03/21 PRE-OP DIAGNOSIS: Epigastric pain POST-OP DIAGNOSIS: other (mild gastritis and esophagitis) PROCEDURE: EGD with biopsies SURGEON: Alena Weller ANESTHESIA TYPE: General:No Airway (see anesthesia record) ESTIMATED BLOOD LOSS: 2 PATHOLOGY: other (Duodenal bx, antrum bx, GE junction bx) COMPLICATIONS: None DISPOSITION: same day INDICATIONS: Mrs Ridley is a pleasant 29-year-old female who is 4 months who has been having epigastric pain and bloating since September 2019. She has had 3 different ultrasounds done which all showed a normal gallbladder, normal liver and normal bile ducts. She was trialed on omeprazole 40 mg daily which she feels made her symptoms worse. She has not tried being on a low-fat diet. On exam her pain is epigastric. Differential includes gastritis versus biliary dyskinesia. HIDA scan was ordered and was normal. Discussed proceeding with an EGD first. Risks, benefits and complications have been reviewed. Complications include but are not limited to bleeding, pain, perforation, sore throat, aspiration, and adverse reaction to the medications. Questions were entertained and answered to their satisfaction and they wished to proceed. No guarantees were given or implied. EGD under [facility] FINDINGS: mild gastritis and esophagitis PROCEDURE DESCRIPTION: After informed consent was obtained the patient was take to the procedure room and placed in a supine position. Monitors were applied and a time out was done. The patients name, date of , procedure type, allergies to medications and metal in their body was reviewed. A bite block was placed and the patient was sedated. Once sedated and comfortable the gastroscope was advanced through the oropharynx which was grossly normal into the esophagus. The proximal and mid- esophagus were normal. In the distal esophagus there was mild inflammation noted. The scope was advanced into the stomach and through the pylorus into the 3rd portion of the duodenum. The duodenum was noted to be normal. Biopsies were done to rule out Celiac. The scope was retracted back into the stomach and biopsies were done to rule out H. pylori. There were no ulcers. There was mild inflammation of the antrum. The scope was retroflexed. The cardia and fundus were noted to be normal. There was no hiatal hernia noted. The scope was retracted back into the esophagus and biopsies were done of the GE junction to rule out Farmer's. The Z line was regular. The GE junction was at 32 cm. The scope was removed and the patient was woken up and taken back to [facility] in stable condition. Follow up: start Pepcid QHS. Follow up in the office in 2 weeks
[2021-01-03 09:02] VITALS: BP 144/84; PULSE 68; RESP 18; TEMP 36.5; O2SAT 96
--- NOTE | 2021-01-03 09:23 | ANES.PREOP_ITS ---
General Info Date of Service Date Performed: 01/03/21 Height: 5 ft 9 in Weight: 111.8 kg Body Mass Index (BMI): 36.3 Surgical Procedure: Operation Date: 01/03/21 11:05 Proposed Procedures Side Surgeon p Gastroscopy Alena Weller MD Meds Allergies and Home Medications Allergies Allergy/AdvReac Type Severity Reaction Status Date / Time No Known Allergies Allergy Unverified 01/03/21 09:11 Home Medication Medication Instructions Recorded apixaban 5 mg PO BID #44 tab 09/23/20 acetaminophen [Tylenol] 650 mg PO ONCE 01/03/21 Current Visit Medications: Current Medications Generic Name Dose Route Start Last Admin Trade Name Freq PRN Reason Stop Dose Admin Ringer's Solution 1,000 mls @ 80 mls/hr 01/03/21 06:00 IV 02/01/21 23:59 INFUSION ZANE IV Miscellaneous Supplies 1 each 01/03/21 06:00 Iv Access IV 02/01/21 23:59 DIRECTED ZANE Sodium Chloride 0 ml 01/03/21 06:00 Normal Saline Flush 10 Ml Syr IV 02/01/21 23:59 PRN PRN Sodium Chloride 0 ml 01/03/21 06:00 Normal Saline 10 Ml Vial IJ 02/01/21 23:59 DIRECTED PRN Sterile Water 0 ml 01/03/21 06:00 Water,Injection,Sterile 10 Ml Vial IJ 02/01/21 23:59 DIRECTED PRN PFSH Active Problems Active Problems: Problem Status Onset Code Tobacco abuse Z72.0 Discharge planning issues Z02.9 Abdominal pain, epigastric R10.13 Headache R51.9 Postprandial epigastric pain R10.13 Back pain, thoracic M54.6 Pulmonary embolism I26.99 Medical History Medical History Constipation, chronic Female infertility IUD (intrauterine device) in place Obesity Prediabetes Pulmonary embolism Skin lesion Tobacco use Surgical History Surgical History (Updated 01/03/21 @ 09:10 by Adeola Alatorre RN) Hx of knee surgery b/l lateral release Tobacco Smoking/Tobacco Use Status: Former Tobacco Use Alcohol Alcohol Intake: current Alcohol intake frequency: a few times a month Alcohol type: beer, wine and hard liquor Substance Use Substance use: Occasionally Substance use type: does not use Details: Pt states she no longer smokes, so she no longer smokes marijuana Vital Signs and Lab Results Vital Signs Most Recent Vital Signs in EMR: Most Recent Vital Signs Temp Pulse Resp BP Pulse Ox 36.5 C 68 18 144/84 H 96 01/03/21 09:02 01/03/21 09:02 01/03/21 09:02 01/03/21 09:02 01/03/21 09:02 Lab Results Blood Type / Crossmatch: No Data to Display Complete Blood Count: 2 No Data to Display Complete Metabolic Panel: No Data to Display Liver Function Panel: No Data to Display Coagulation Panel: No Data to Display Cardiac Panel: No Data to Display Arterial Blood Gas: No Data to Display Venous Blood Gas: No Data to Display Pancreas Panel: No Data to Display Thyroid Panel: No Data to Display Infectious Disease: Coronavirus (COVID-19)(PCR) Negative (Negative) 01/01/21 08:46 01/01/21 Coronavirus 2019 Source Nasal/Nares 01/01/21 08:46 01/01/21 Blood Cultures: No Data to Display Toxicology Panel: No Data to Display Panel: No Data to Display Imaging and Studies Imaging and Studies EKG Summary: DATE/TIME OF SERVICE: 11/09/202253 Conclusion Sinus rhythm...normal P axis, V-rate 60- 99 There are no significant changes compared to prior EKG performed on 09/23/2020 at 10:33. Anesthesia Assessment and Plan Anesthesia History Personal History: No History of Anesthesia Complications Family History: No Family History of Anesthesia Complications Exercise Tolerance Exercise Tolerance: Metabolic Equivalents>4 Pertinent Negatives Pertinent Negatives: No Symptoms of GERD, No Major Cardiovascular Symptoms or Complaints and No Major Pulmonary Symptoms or Complaints Cardiac & Pulmonary Exam Cardiac Exam: Normal S1/S2 Heart Sounds Pulmonary Exam: Clear Bilateral Breath Sounds Airway Exam Known Difficult Airway: No Mallampati Class: 2 Mouth Opening: Normal (> 3cm) Thyromental Distance: Less than 3 cm Neck Range of Motion: Full ROM Neck Circumference: Normal Teeth Condition: Normal Dentition ASA Classification ASA Score: ASA 2 Emergency Case?: No NPO Status NPO Status: NPO Clears >2 hours, Solids >8 hours Status Status: Negative HCG Anesthesia Plan Resuscitation Status: Full Code Anesthesia Technique: General Anesthesia Airway Planned: Natural Airway Monitors Used: Standard Monitors
[2021-01-03] MEDS: Lactated Ringers 1,000 ML 80 ML IV (09:37)
[2021-01-03 09:46] VITALS: BMI 36.3
--- NOTE | 2021-01-03 10:44 | STOM_PTH ---
PATIENT: Bernadine Ridley LOC: [facility] U#:[id number] AGE/SX: 30/F ROOM: RE01/03/[address]: Alena Weller MD : 1990 BED: DIS: 01/03/2021 SPEC #: [id number] RECD: 01/03/21 12:51 STATUS: YARIEL REAbhilash #: [id number] HOLLY: 01/03/21 10:[address]: Alena Weller DEPT: Surgical Specimen RECD BY: Katarzyna Dukes ENTERED: 01/03/21 12:51 SP TYPE: STOMACH OTHR DR: Lisa Castellano Tissues: 1 - BIOPSY BOWEL 2 - STOMACH BIOPSY 3 - ESOPHAGUS BIOPSY Procedures: GROSS AND MICRO LEVEL 4 Comments: [id number]
[2021-01-03 10:59] VITALS: BP 132/75; PULSE 73; RESP 17; TEMP 36.4; O2SAT 98
--- NOTE | 2021-01-03 11:00 | W.ANESPOSTOP ---
Postoperative Evaluation Date, Time and Location Date Performed: 01/03/21 Time Performed: 11:00 Patient Location: Day Surgery Unit Vital Signs Most Recent Imported Vital Signs: Most Recent Vital Signs Temp Pulse Resp BP Pulse Ox 36.5 C 68 18 144/84 H 96 01/03/21 09:02 01/03/21 09:02 01/03/21 09:02 01/03/21 09:02 01/03/21 09:02 Most Recent Manually Entered Vital Signs: Adult Blood Pressure: 132/75 Heart Rate: 73 Respirations: 12 Oxygen Saturation (%): 98 Temperature (C): 36.4 C Pain Score (0-10 Scale): 0 Pain Score Most Recent Pain Score: Most Recent Pain Score Pain Level 0 01/03/21 09:02 Assessment Mental Status: Awake (Alert & Oriented to Patient Baseline) Airway and Respiratory Function: Patent airway with normal (patient baseline) respiratory exam Cardiovascular Function: Hemodynamically Stable Hydration Status: Adequately Hydrated Nausea & Vomiting: No Nausea or Vomiting Pain: Pt. Denies Any Pain Peripheral Nerve Block: Patient did not receive a nerve block
[2021-01-03 11:02] VITALS: BP 132/75; PULSE 73; RESP 12; TEMPC 36.4; O2SAT 98
[2021-01-03 11:25] VITALS: BP 138/80; PULSE 64; RESP 16; TEMP 36.4; O2SAT 100
== END 2021-01-03 11:40 | disposition home or self-care (01) ==
LOC: SUR 08:47
PROVIDERS: PCP Family Medicine; Visit Provider Surgery
PROC: 0DJ68ZZ Inspection of Stomach, Via Natural or Artificial Opening Endoscopic (ICD-10-PCS; CPT 43235; principal; 2021-01-03 11:00)
DX: R10.13 Epigastric pain (principal); K29.70 Gastritis, unspecified, without bleeding; K22.70 Barrett's esophagus without dysplasia; K31.89 Other diseases of stomach and duodenum; Z86.711 Personal history of pulmonary embolism
CPT/HCPCS: 43239; 81025; 88305; J2001

== ENCOUNTER 2021-07-02 08:32 | Outpatient (REF) | payer OTHER, SELFPAY ==
[2021-07-02 17:17] LABS: Hemoglobin A1C 5.8 % (<5.7)
[2021-07-02 17:23] LABS: Anion Gap 8.2 mmol/L (3-11); BUN 15 mg/dL (7-18); CO2 25.8 mmol/L (21.0-32.0); CREATININE 0.9 mg/dL (0.55-1.02); Calcium 8.3 mg/dL (8.5-10.1); Chloride 107 mmol/L (98-107); Glucose 97 mg/dL (74-106); Magnesium 2.3 mg/dL (1.8-2.4); Potassium 4.6 mmol/L (3.5-5.1); Sodium 141 mmol/L (136-145); TSH (W/Ref FT4) 2.17 uIU/mL (0.36-3.74)
== END 2021-07-02 08:33 | disposition home or self-care (01) ==
LOC: NCHCN 08:32
PROVIDERS: PCP Family Medicine; Visit Provider Family Medicine
DX: R03.0 Elevated blood-pressure reading, without diagnosis of hypertension (principal); R73.03 Prediabetes; R51.9 Headache, unspecified; E66.9 Obesity, unspecified
CPT/HCPCS: 80048; 83036; 83735; 84443

== ENCOUNTER 2021-07-13 02:34 | Outpatient (CLI) | payer OTHER, SELFPAY ==
[2021-07-13 17:02] LABS: Ionized Calcium 1.13 mmol/L (1.14-1.35)
[2021-07-16 06:59] LABS: Vitamin D 25 Total 11.9 ng/mL (30-100)
[2021-07-16 12:56] LABS: Parathyroid Hormone,Intact 59 pg/mL (19-88)
== END 2021-07-13 02:35 | disposition home or self-care (01) ==
LOC: LBO 02:34
PROVIDERS: PCP Family Medicine; Visit Provider Family Medicine
DX: E83.51 Hypocalcemia (principal); R51.9 Headache, unspecified; E07.89 Other specified disorders of thyroid
CPT/HCPCS: 36415; 82306; 82330; 83970; 84100

== ENCOUNTER 2021-11-01 03:14 | Outpatient (CLI) | payer OTHER, SELFPAY ==
[2021-11-01 10:30] LABS: Hemoglobin A1C 5.7 % (<5.7)
[2021-11-01 10:54] LABS: Calcium 8.9 mg/dL (8.5-10.1)
[2021-11-01 11:36] LABS: Vitamin D 25 Total 44.3 ng/mL (30-100)
[2021-11-01 19:18] LABS: Ionized Calcium 1.12 mmol/L (1.14-1.35)
== END 2021-11-01 03:15 | disposition home or self-care (01) ==
LOC: LBO 03:14
PROVIDERS: PCP Family Medicine; Visit Provider Family Medicine
DX: E83.51 Hypocalcemia (principal); R73.03 Prediabetes; E55.9 Vitamin D deficiency, unspecified
CPT/HCPCS: 36415; 82306; 82310; 82330; 83036

== ENCOUNTER 2022-05-13 15:53 | Outpatient (REF) | payer OTHER, SELFPAY ==
[2022-05-13 18:39] LABS: Anion Gap 9.8 mmol/L (3-11); BUN 15 mg/dL (7-18); CO2 27.2 mmol/L (21.0-32.0); CREATININE 1.1 mg/dL (0.55-1.02); Calcium 9.5 mg/dL (8.5-10.1); Chloride 103 mmol/L (98-107); Estimated GFR 69.76 (mL/min/1.73m2); Glucose 84 mg/dL (74-106); Potassium 4.5 mmol/L (3.5-5.1); Sodium 140 mmol/L (136-145)
[2022-05-13 19:36] LABS: Vitamin D 25 Total 25.9 ng/mL (30-100)
[2022-05-15 10:31] LABS: Hepatitis C Ab w Rflx HCV PCR Negative (Negative)
== END 2022-05-13 15:54 | disposition home or self-care (01) ==
LOC: NCHCN 15:53
PROVIDERS: PCP Family Medicine; Visit Provider Family Medicine
DX: E55.9 Vitamin D deficiency, unspecified (principal); Z00.00 Encounter for general adult medical examination without abnormal findings; Z11.59 Encounter for screening for other viral diseases
CPT/HCPCS: 80048; 82306; 86803

== ENCOUNTER 2022-07-10 14:44 | Outpatient (CLI) | payer OTHER, SELFPAY ==
--- NOTE | 2022-07-10 13:45 | DI.RAD_ITS ---
Exam(s) XR SHOULDER RT COMPLETE 2+V EXAM: XR SHOULDER RT COMPLETE 2+V CLINICAL HISTORY: Right shoulder pain. TECHNIQUE: 2D digital imaging was performed. Five views. COMPARISON: No exams were available for comparison FINDINGS: BONES: No acute fracture is present. No bony destructive lesion is seen. JOINTS: No dislocation present. SOFT TISSUE: Normal. IMPRESSION: Unremarkable radiographs of the right shoulder. DATA REPOSITORY: RADIATION DOSE DELIVERED:
== END 2022-07-10 14:45 | disposition home or self-care (01) ==
LOC: DIORS 14:45
PROVIDERS: PCP Family Medicine; Referring Provider Family Medicine; Visit Provider Student in an Organized Health Care Education/Training Program
DX: M25.511 Pain in right shoulder (principal)
CPT/HCPCS: 73030

== ENCOUNTER 2022-08-05 01:59 | Outpatient (CLI) | payer OTHER, SELFPAY ==
--- NOTE | 2022-08-05 07:30 | DI.MRI_ITS ---
Exam(s) MR UPPER JOINT RT WO EXAM: MR UPPER JOINT RT WO CLINICAL HISTORY: AC JOINT SPRAIN, PAIN,[id number]. TECHNIQUE: Multiplanar multisequence MRI was performed. COMPARISON: CR XR SHOULDER RT COMPLETE 2+V from 07/10/2022 FINDINGS: BONES: There is no fracture or contusion pattern. JOINTS: There is very mild edema seen around the acromioclavicular joint which may represent a sprain . The glenohumeral joint is normal. TENDONS: Supraspinatus: Unremarkable. Infraspinatus: Unremarkable. Subscapularis: Unremarkable. Teres Minor: Unremarkable. Biceps and Price: Unremarkable. MUSCLES: Unremarkable. GLENOID LABRUM: Unremarkable on this noncontrast examination. SOFT TISSUES: Unremarkable. LIGAMENTS: Unremarkable. OTHER: Subacromial and subdeltoid bursae are unremarkable. IMPRESSION: 1. Mild edema seen on the T2 weighted images around the acromioclavicular joint which may represent a sprain. 2. No evidence of a rotator cuff or labral tear on this noncontrast examination. DATA REPOSITORY:
== END 2022-08-05 02:19 ==
LOC: DI 02:01
PROVIDERS: PCP Family Medicine; Visit Provider Student in an Organized Health Care Education/Training Program
DX: S43.51XA Sprain of right acromioclavicular joint, initial encounter (principal)
CPT/HCPCS: 73221

== ENCOUNTER 2024-04-28 17:27 | Outpatient (REF) | payer SELFPAY ==
[2024-04-28 20:23] LABS: ESR 17 mm/hr (0-20)
[2024-04-28 20:37] LABS: C-Reactive Protein < 0.50 mg/dL (<or=0.5); FREE T4 0.96 ng/dL (0.76-1.46); TSH 1.86 uIU/mL (0.36-3.74); Uric Acid 4.5 mg/dL (2.6-6.0)
[2024-04-28 20:51] LABS: Hemoglobin A1C 5.9 % (<5.7)
[2024-04-30 09:17] LABS: Cyclic Citrullinated Peptide <2.5 U/mL (<5.0)
[2024-04-30 13:22] LABS: ANA Interpretation Negative (Negative)
== END 2024-04-28 17:28 | disposition home or self-care (01) ==
LOC: NCHCN 17:27
PROVIDERS: PCP Family Medicine; Visit Provider Family Medicine
DX: R63.5 Abnormal weight gain (principal); M25.59 Pain in other specified joint
CPT/HCPCS: 85652; 86200; 83036; 84439; 84443; 84550; 86038; 86140